=== PATIENT | female | born 1980 | race Hispanic/Latino ===

== ENCOUNTER 2021-07-03 01:45 | Emergency (ER) | payer BC ==
[~2021-07-03] VITALS: Ht 152.4 cm; Wt 61.2 kg
[2021-07-03] MEDS ORDERED: ONDANSETRON ODT 4MG TAB ONE (02:28)
[2021-07-03] MEDS ORDERED: ONDANSETRON ODT 4MG TAB SL ONE (02:30)
[2021-07-03 03:24] LABS: BASOPHILS % (AUTO) 0.5 % (0.0-5.0); EOSINOPHILS % (AUTO) 0.2 % (0.0-8.0); HEMATOCRIT 35.9 % (36-48); LYMPHOCYTES % (AUTO) 13.9 % (21.0-51.0); MEAN CORPUSCULAR HEMOGLOBIN 26.4 pg (27.0-33.0); MEAN CORPUSCULAR HGB CONC 32.6 g/dL (32.0-36.0); MEAN CORPUSCULAR VOLUME 80.9 fL (79-99); MONOCYTES % (AUTO) 4.2 % (3.0-13.0); NEUTROPHILS % (AUTO) 80.7 % (40.0-77.0); PLATELET COUNT (AUTO) 455 K/uL (130-400); RED BLOOD CELL COUNT(AUTO) 4.44 MIL/uL (4.00-5.50); RED CELL DISTRIBUTION WIDTH 13.6 % (11.0-15.5); WHITE BLOOD COUNT (AUTO) 18.5 K/uL (4.8-10.8)
[2021-07-03] MEDS ORDERED: 0.9% NACL 500ML IV.SOLN 500 ML IV ONE (03:30)
[2021-07-03] MEDS ORDERED: LORAZEPAM 2 MG/ML 1 ML VIAL IVP ONE (03:30)
[2021-07-03 03:33] LABS: CREATININE 0.7 mg/dL (0.5-1.5); POTASSIUM 3.4 mmol/L (3.5-5.1)
[2021-07-03] MEDS ORDERED: LORAZEPAM 2 MG/ML 1 ML VIAL IM ONE (04:00)
[2021-07-03 04:57] LABS: AMPHET/METH SCREEN,URINE NEGATIVE (NEGATIVE); BARBITURATE SCREEN, URINE NEGATIVE (NEGATIVE); BENZODIAZEPINES SCREEN,URINE NEGATIVE (NEGATIVE); CANNABINOID SCREEN,URINE POSITIVE (NEGATIVE); COCAINE SCREEN,URINE NEGATIVE (NEGATIVE); OPIATE SCREEN,URINE NEGATIVE (NEGATIVE); PHENCYCLIDINE SCREEN,URINE NEGATIVE (NEGATIVE)
[2021-07-03 05:39] VITALS: BP 115/77
== END 2021-07-03 06:00 | disposition home or self-care (01) ==
LOC: EDH 01:45
DX: F41.9 Anxiety disorder, unspecified (principal)
CPT/HCPCS: 36415; 80048; 80305; 85025; 96361; 96374; 99284; J2060; J7040